=== PATIENT | female | born 1980 | race Caucasian/White ===

== ENCOUNTER 2017-07-15 19:38 | Emergency (ER) | payer OTHER ==
--- NOTE | 2017-07-15 19:57 | PDOC ---
Rapid Medical Evaluation Time Seen by Provider: 07/15/17 19:49 Medical Evaluation: Allergies Allergy/AdvReac Type Severity Reaction Status Date / Time acetaminophen [From Percocet] Allergy Verified 04/18/15 15:07 oxycodone HCl [From Percocet] Allergy Verified 04/18/15 15:07 Shellfish Allergy Verified 04/18/15 15:07 07/15/17 19:51 I have performed a brief in-person evaluation of this patient. The patient presents with a chief complaint of: hx of MS, pain to neck and shoulders, "usually get trigger point injections but i haven't seen her in 8 months" Pertinent physical exam findings: limited ROM to neck secondary to pain, tenderness to midline thoracic spine, tachy to 114 I have ordered the following: urine preg The patient will proceed to the ED for further evaluation. Discharge Disposition - Diagnosis Neck pain - Referrals - Patient Instructions - Post Discharge Activity
[2017-07-15 19:58] VITALS: BP 137/79; TEMP 98.5; BMI 22.4
[2017-07-15] MEDS ORDERED: KETOROLAC TROMETHAMINE 60 MG/2 ML VIAL IM ONE (20:17)
--- NOTE | 2017-07-15 20:20 | PDOC ---
History of Present Illness - General Chief Complaint: Pain Stated Complaint: PAIN Time Seen by Provider: 07/15/17 19:49 History Source: Patient Exam Limitations: No Limitations (36y/o F with h/O MS here with upper back spasm ) Past History - Past Medical History Allergies/Adverse Reactions: Allergies Allergy/AdvReac Type Severity Reaction Status Date / Time acetaminophen [From Percocet] Allergy Verified 07/15/17 19:56 oxycodone HCl [From Percocet] Allergy Verified 07/15/17 19:56 Shellfish Allergy Verified 07/15/17 19:56 Home Medications: Ambulatory Orders Cyclobenzaprine HCl [Flexeril 10 mg] 10 mg PO BID #20 tablet 07/15/17 Ibuprofen 800 mg PO ACDIN #21 tablet 07/15/17 Teriflunomide [Aubagio] 14 mg PO DAILY 07/15/17 COPD: No Diabetes: Yes Other medical history: ms - Immunization History Immunization Up to Date: Yes - Suicide/Smoking/Psychosocial Hx Smoking Status: No Smoking History: Current every day smoker Have you smoked in the past 12 months: No Number of Cigarettes Smoked Daily: 2 Information on smoking cessation initiated: No 'Breaking Loose' booklet given: 04/04/13 Hx Alcohol Use: No Drug/Substance Use Hx: No Substance Use Type: None *Physical Exam - Vital Signs Last Vital Signs Temp Pulse Resp BP Pulse Ox 98.5 F 114 H 20 137/79 100 07/15/17 19:56 07/15/17 19:56 07/15/17 19:56 07/15/17 19:56 07/15/17 19:56 Medical Decision Making - Medical Decision Making 07/15/17 20:20 36y/o F with h/o DM, MS (follows up with pain management at [facility]), managment involves trigger point injection q3 months, she has not been to pain managment in 8 months. She p/w spasm to upper back/shoulder for several days, denies trauma, CP, sOB PE: tense musle noted pain control f/u pain management *DC/Admit/Observation/Transfer Diagnosis at time of Disposition: Neck pain, Muscle spasm of back - Discharge Dispostion Disposition: HOME Condition at time of disposition: Stable Admit: No - Prescriptions Prescriptions: Cyclobenzaprine HCl [Flexeril 10 mg] 10 mg PO BID #20 tablet Ibuprofen 800 mg PO ACDIN #21 tablet - Referrals - Patient Instructions Printed Discharge Instructions: DI for Back Spasm Additional Instructions: Please follow up with Dr Caldwell - Post Discharge Activity
[2017-07-15] MEDS ORDERED: KETOROLAC TROMETHAMINE 60 MG/2 ML VIAL ONE (20:24)
[2017-07-15] MEDS ORDERED: CYCLOBENZAPRINE HCL 10 MG TABLET (FP) ONE (20:24)
[2017-07-15] MEDS ORDERED: CYCLOBENZAPRINE HCL 5 MG TABLET PO SCH (20:30)
[2017-07-15 20:53] VITALS: PULSE 90
== END 2017-07-15 21:05 | disposition home or self-care (01) ==
LOC: JER 19:38 → JERFT 19:38
PROC: 3E0233Z Introduction of Anti-inflammatory into Muscle, Percutaneous Approach (ICD-10-PCS; principal; 2017-07-15)
DX: M62.830 Muscle spasm of back (principal); G35 Multiple sclerosis
CPT/HCPCS: 99281-25